=== PATIENT | male | born 1980 | race Caucasian/White ===

== ENCOUNTER 2016-08-15 11:13 | Emergency (ER) | payer OTHER ==
[~2016-08-15] VITALS: Ht 188 cm; Wt 98.1 kg
[2016-08-15] MEDS ORDERED: SODIUM CHLORIDE FLUSH 10ML SYR IVF ONE (11:30)
[2016-08-15] MEDS ORDERED: SODIUM CHLORIDE 0.9% 1,000ML IVBOLUS ONE (11:30)
[2016-08-15] MEDS ORDERED: DILTIAZEM 5 MG/ML, 5ML ONE (11:45)
[2016-08-15 11:59] LABS: HEMOGLOBIN 15.9 g/dL (13.7-18.0)
[2016-08-15] MEDS ORDERED: DILTIAZEM 5 MG/ML, 5ML IVPush ONE (12:00)
[2016-08-15 12:11] LABS: ASPARTATE AMINO TRANSFERASE 15 U/L (15-37); BLOOD UREA NITROGEN 9 mg/dL (7-18)
[2016-08-15 12:19] LABS: IS PT STATUS REG ER OR PRE ER? YES
[2016-08-15] MEDS ORDERED: ETOMIDATE 20 MG/10 ML ONE (12:27)
[2016-08-15] MEDS ORDERED: PROPOFOL 10 MG/ML, 20ML ONE (12:52)
[2016-08-15] MEDS ORDERED: ETOMIDATE 20 MG/10 ML IVPush ONE (13:00)
[2016-08-15] MEDS ORDERED: PROPOFOL 10 MG/ML, 20ML IVPush ONE (13:00)
[2016-08-15 14:24] VITALS: BP 110/72
== END 2016-08-15 14:26 | disposition home or self-care (01) ==
LOC: ED 14:21
DX: I48.91 Unspecified atrial fibrillation (principal); Z88.0 Allergy status to penicillin; Z88.1 Allergy status to other antibiotic agents
CPT/HCPCS: 36415; 71010; 80053; 83735; 83880; 84443; 84484; 85025; 85610; 92960; 93005; 96361; 96374; 99285; J2704; J7030